=== PATIENT | female | born 1940 | race Caucasian/White ===

== ENCOUNTER 2022-04-01 14:54 | Emergency (ER) | payer OTHER, SELFPAY ==
[2022-04-01 15:44] VITALS: BP 180/70; PULSE 62; RESP 18; TEMP 36.9; O2SAT 98; BMI 28.3
[2022-04-01 17:26] LABS: Basophils Absolute Auto 0.1 X10*3/uL (0.0-0.2); Eosinophils Absolute Auto 0.2 X10*3/uL (0.0-0.4); Eosinophils Percent Auto 2.4 % (0-4); Hematocrit 41.3 % (37.0-47.0); Hemoglobin 13.1 g/dl (12.0-16.0); Imm Gran Abs Auto 0.02 X10*3/uL (0.00-0.03); Imm Gran Pct Auto 0.2 % (0.0-0.4); Lymphocytes Absolute Auto 2.7 X10*3/uL (1.2-4.9); MANUAL DIFF FLAG NO; Mean Corpuscular HGB Conc 31.7 g/dl (31.0-35.0); Mean Corpuscular Hemoglobin 28.8 pg (27.0-33.0); Mean Corpuscular Volume 90.8 fL (80.0-98.0); Mean Platelet Volume 9.5 fL (9.4-12.3); Monocytes Absolute Auto 0.6 X10*3/uL (0.1-1.2); Monocytes Percent Auto 7.8 % (2-11); Neutrophils Absolute Auto 4.5 x10*3/uL (2.0-8.3); Neutrophils Percent Auto 55.6 % (45-73); Platelet Count 276 X10*3/uL (160-400); Red Blood Count 4.55 X10*6/uL (4.20-5.50); Red Cell Distribution Width 12.5 % (11.0-16.0); White Blood Count 8.2 X10*3/uL (4.8-10.8)
[2022-04-01 17:45] LABS: Anion Gap 11 (12-20); Blood Urea Nitrogen 18 mg/dL (9-16); Calcium 9.9 mg/dL (8.4-10.2); Carbon Dioxide 26 mmol/L (22-29); Chloride 109 mmol/L (96-108); Creatinine Clr Calc Pharmacy 40.4; Estimated Glomerular Filt Rate > 60; Glucose Random 83 mg/dL (60-115); Potassium 4.6 mmol/L (3.3-5.1); Sodium 141 mmol/L (135-145)
--- NOTE | 2022-04-01 21:22 | ED.GENADULT ---
HPI - General Adult General Chief complaint: General Medical Stated complaint: SOB/HBP Time Seen by Provider: 04/01/22 21:20 Source: patient and family Mode of arrival: ambulatory Limitations: no limitations History of Present Illness HPI narrative: son notes for 3 months at times appears more tired, sometimes has an issue with recall since being off of medications, today has very minimal headache but thinks it is due to not eating dinner, asking for refill of her BP medications - not able to fill it for 1 more week until she sees her new PCP MD complaint: HTN out of BP medications Onset (ago): month(s) (3) Location: head Severity: mild Quality: dull Pain Consistency: intermittent Relieving factors: none Exacerbating factors: none Associated symptoms: denies other symptoms Treatments prior to arrival: none Related Data Previous Rx's Medication Instructions Recorded candesartan 32 1 tab PO DAILY #30 tab 04/01/22 mg-hydrochlorothiazide 12.5 mg tablet Allergies Allergy/AdvReac Type Severity Reaction Status Date / Time No Known Allergies Allergy Unverified 07/26/20 15:38 [No Known Allergies*] Review of Systems Review of Systems: Constitutional : No Fever, No Chills, No Fatigue ENT/Mouth : No sore throat, No Rhinorrhea Eyes: No Eye Pain, No Swelling, No Redness Cardiovascular : No Chest Pain, No SOB, No Dyspnea on Exertion Respiratory : No Cough, No Sputum Gastrointestinal : No Nausea, No Vomiting, No Diarrhea, No abdominal Pain Genitourinary : No Dysuria, No Urinary Frequency, No Hematuria, Musculoskeletal : No joint pain, No Myalgias, No Joint Swelling Skin : No Skin Lesions, No rash Neuro : No Weakness, No Numbness, No Dizziness, positive Headache Psych : No Anxiety/Panic, No Depression Heme/Lymph: No Bruising, No Bleeding,No Lymphadenopathy Endocrine : No Polyuria, No Polydipsia All other systems reviewed and are negative [facility] Past Medical History Attestation statement: The following information was validated with the patient. Medical History Acute CVA (cerebrovascular accident) HTN (hypertension) Social History Social History (Updated 04/01/22 @ 21:31 by Bri Swanson DO) Patient Tobacco Use Status: Never used Tobacco Physical Exam ED Vital Signs: Vital Signs - 24 hr 04/01/22 15:44 Temperature 98.4 F Pulse Rate 62 Respiratory Rate 18 Blood Pressure 180/70 H Pulse Oximetry 98 BMI result Body Mass Index 28.3 Appearance: Alert. Oriented X3. No acute distress. Eyes: Pupils equal, round and reactive to light. ENT: Pharynx normal. Neck: Normal inspection. Neck supple. CVS: Normal heart rate and rhythm. Pulses normal. Respiratory: No respiratory distress. Breath sounds normal. Abdomen: Soft and nontender. Skin: Skin warm and dry. Normal skin color. Normal skin turgor. Extremities: No lower extremity edema. No calf ttp Neuro: Oriented X 3. No motor deficit. No sensory deficit. Steady gait Medical Decision Making MDM Narrative Medical decision making narrative: 82 yo female with hx of HTN off of her medications x 3 months due to PCP issue she has normal renal function other than mild headache she has no other complaints or signs of end organ dysfunction at this time will dose with HCTZ here and Rx for home. Can be DC home with PCP follow up. Chronic untreated HTN without signs of end organ dysfunction Lab Data Result diagrams: 04/01/22 17:18 04/01/22 17:18 Labs: Lab Results 04/01/22 04/01/22 Range/Units 17:18 17:18 WBC 8.2 (4.8-10.8) X10*3/uL RBC 4.55 (4.20-5.50) X10*6/uL Hgb 13.1 (12.0-16.0) g/dl Hct 41.3 (37.0-47.0) % MCV 90.8 (80.0-98.0) fL MCH 28.8 (27.0-33.0) pg MCHC 31.7 (31.0-35.0) g/dl RDW 12.5 (11.0-16.0) % Plt Count 276 (160-400) X10*3/uL MPV 9.5 (9.4-12.3) fL Immature Gran % (Auto) 0.2 (0.0-0.4) % Neut % (Auto) 55.6 (45-73) % Lymph % (Auto) 33.0 (20-40) % O'Brien % (Auto) 7.8 (2-11) % Eos % (Auto) 2.4 (0-4) % Baso % (Auto) 1.0 (0-2) % Lymph # (Auto) 2.7 (1.2-4.9) X10*3/uL O'Brien # (Auto) 0.6 (0.1-1.2) X10*3/uL Eos # (Auto) 0.2 (0.0-0.4) X10*3/uL Baso # (Auto) 0.1 (0.0-0.2) X10*3/uL Abs Immat Gran (auto) 0.02 (0.00-0.03) X10*3/uL Absolute Neuts (auto) 4.5 (2.0-8.3) x10*3/uL Absolute Nucleated RBC 0.000 (0.0-0.012) X10*3/uL Nucleated RBC % (auto) 0.0 (0.0-0.2) /100WBC Sodium 141 (135-145) mmol/L Potassium 4.6 (3.3-5.1) mmol/L Chloride 109 H (96-108) mmol/L Carbon Dioxide 26 (22-29) mmol/L Anion Gap 11 L (12-20) BUN 18 H (9-16) mg/dL Creatinine 0.87 (0.5-1.4) mg/dL Estim Creat Clear Calc 40.4 Estimated GFR > 60 Random Glucose 83 (60-115) mg/dL Calcium 9.9 (8.4-10.2) mg/dL Discharge Plan Discharge Clinical Impression: HTN (hypertension) Qualifiers: Hypertension type: unspecified Qualified Code(s): I10 - Essential (primary) hypertension Patient Disposition: Home, Self-Care Instructions: Hypertension (ED) Additional Instructions: return to ED for any worsening symptoms or concerns given dose of BP medications in the ED follow up with primary care as scheduled Prescriptions: New candesartan-hydrochlorothiazid 32-12.5 mg tablet 1 tab PO DAILY Qty: 30 0RF
[2022-04-01 21:58] VITALS: BP 191/77; PULSE 57; RESP 18; TEMP 36.8; O2SAT 99
[2022-04-01] MEDS: hydroCHLOROthiazide 25 MG TABLET PO (22:03)
--- NOTE | 2022-04-02 15:57 | ED.GENADULT ---
HPI - General Adult General Chief complaint: General Medical Stated complaint: SOB/HBP Time Seen by Provider: 04/01/22 21:20 Source: patient and family Mode of arrival: ambulatory Limitations: no limitations History of Present Illness Location: head Quality: dull Relieving factors: none Exacerbating factors: none Associated symptoms: denies other symptoms Treatments prior to arrival: none Related Data Previous Rx's Medication Instructions Recorded candesartan 32 1 tab PO DAILY #30 tabs 04/01/22 mg-hydrochlorothiazide 12.5 mg tablet Allergies Allergy/AdvReac Type Severity Reaction Status Date / Time No Known Allergies Allergy Unverified 07/26/20 15:38 [No Known Allergies*] [facility] Past Medical History Medical History Acute CVA (cerebrovascular accident) HTN (hypertension) Social History Social History (Updated 04/01/22 @ 21:31 by Bri Swanson DO) Patient Tobacco Use Status: Never used Tobacco Advance Directives: No Advance Directives Information Provided: No Physical Exam ED Vital Signs: Vital Signs - 24 hr 04/01/22 21:58 Temperature 98.2 F Pulse Rate 57 Respiratory Rate 18 Blood Pressure 191/77 H Pulse Oximetry 99 BMI result Body Mass Index 28.3 Medical Decision Making Lab Data Result diagrams: 04/01/22 17:18 04/01/22 17:18 Labs: Lab Results 04/01/22 04/01/22 Range/Units 17:18 17:18 WBC 8.2 (4.8-10.8) X10*3/uL RBC 4.55 (4.20-5.50) X10*6/uL Hgb 13.1 (12.0-16.0) g/dl Hct 41.3 (37.0-47.0) % MCV 90.8 (80.0-98.0) fL MCH 28.8 (27.0-33.0) pg MCHC 31.7 (31.0-35.0) g/dl RDW 12.5 (11.0-16.0) % Plt Count 276 (160-400) X10*3/uL MPV 9.5 (9.4-12.3) fL Immature Gran % (Auto) 0.2 (0.0-0.4) % Neut % (Auto) 55.6 (45-73) % Lymph % (Auto) 33.0 (20-40) % Villalba % (Auto) 7.8 (2-11) % Eos % (Auto) 2.4 (0-4) % Baso % (Auto) 1.0 (0-2) % Lymph # (Auto) 2.7 (1.2-4.9) X10*3/uL Villalba # (Auto) 0.6 (0.1-1.2) X10*3/uL Eos # (Auto) 0.2 (0.0-0.4) X10*3/uL Baso # (Auto) 0.1 (0.0-0.2) X10*3/uL Abs Immat Gran (auto) 0.02 (0.00-0.03) X10*3/uL Absolute Neuts (auto) 4.5 (2.0-8.3) x10*3/uL Absolute Nucleated RBC 0.000 (0.0-0.012) X10*3/uL Nucleated RBC % (auto) 0.0 (0.0-0.2) /100WBC Sodium 141 (135-145) mmol/L Potassium 4.6 (3.3-5.1) mmol/L Chloride 109 H (96-108) mmol/L Carbon Dioxide 26 (22-29) mmol/L Anion Gap 11 L (12-20) BUN 18 H (9-16) mg/dL Creatinine 0.87 (0.5-1.4) mg/dL Estim Creat Clear Calc 40.4 Estimated GFR > 60 Random Glucose 83 (60-115) mg/dL Calcium 9.9 (8.4-10.2) mg/dL Discharge Plan Discharge Clinical Impression: HTN (hypertension) Patient Disposition: Home, Self-Care Instructions: Hypertension (ED) Additional Instructions: return to ED for any worsening symptoms or concerns given dose of BP medications in the ED follow up with primary care as scheduled Prescriptions: New candesartan-hydrochlorothiazid 32-12.5 mg tablet 1 tab PO DAILY Qty: 30 0RF Interventions: ED Discharge Assessment Last Done: 04/01/22 22:05 Discharge Date/Time: 04/01/22 22:07
== END 2022-04-01 22:07 | disposition home or self-care (01) ==
LOC: HO.ED 21:56
PROVIDERS: Emergency Provider Emergency Medicine; PCP Internal Medicine
DX: I10 Essential (primary) hypertension (principal); R51.9 Headache, unspecified; Z86.73 Personal history of transient ischemic attack (TIA), and cerebral infarction without residual deficits
CPT/HCPCS: 36415; 80048; 85025; 99283